=== PATIENT | male | born 1995 | race Caucasian/White ===

== ENCOUNTER 2017-12-17 23:35 | Emergency (ER) | payer OTHER ==
[~2017-12-17] VITALS: Ht 180.3 cm; Wt 66.5 kg
[2017-12-17 23:37] VITALS: BP 134/83
[2017-12-18 01:00] LABS: BASOPHILS # (AUTO) 0.06 x10^3/uL (0-0.1); BASOPHILS % (AUTO) 1 % (0-1); EOSINOPHILS # (AUTO) 0.23 x10^3/uL (0-0.4); EOSINOPHILS % (AUTO) 3 % (1-7); LYMPHOCYTES # (AUTO) 3.14 x10^3/uL (1-3.4); LYMPHOCYTES % (AUTO) 38 % (22-44); MD NO; MEAN CORPUSCULAR HEMOGLOBIN 29.9 pg (27.5-34.5); MEAN CORPUSCULAR HGB CONC 33.7 g/dL (33.2-36.2); MEAN CORPUSCULAR VOLUME 88.5 fL (81-97); MEAN PLATELET VOLUME 9.6 fL (7.4-10.4); MONOCYTES # (AUTO) 0.57 x10^3/uL (0.2-0.8); MONOCYTES % (AUTO) 7 % (2-9); NEUTROPHILS # (AUTO) 4.17 x10^3/uL (1.8-6.8); NEUTROPHILS % (AUTO) 51 % (42-75); PLATELET COUNT 187 x10^3/uL (130-400); RED BLOOD COUNT 5.32 x10^6/uL (4.38-5.82); RED CELL DISTRIBUTION WIDTH 12.9 % (9.4-14.8)
[2017-12-18 01:12] LABS: ALBUMIN 4.2 g/dL (3.4-5.0); ANION GAP 2 mmol/L (5-15); CALCIUM 9.2 mg/dL (8.5-10.1); CHLORIDE 105 mmol/L (98-107)
[2017-12-18 01:21] LABS: ALANINE AMINOTRANSFERASE 20 U/L (12-78); ALKALINE PHOSPHATASE 81 U/L (45-117); BILIRUBIN,TOTAL 0.6 mg/dL (0.2-1.0); CREATININE 1.39 mg/dL (0.7-1.3); TOTAL PROTEIN 7.7 g/dL (6.4-8.2)
[2017-12-18] MEDS ORDERED: HYDROcodone/APAP 5/325 TABLET PO ONE (01:30)
[2017-12-18] MEDS ORDERED: HYDROcodone/APAP 5/325 TABLET ONE (01:36)
[2017-12-18 01:46] LABS: MICROSCOPIC AUTO
[2017-12-18 01:48] LABS: CULTURE INDICATED? NO
== END 2017-12-18 02:55 | disposition home or self-care (01) ==
LOC: ED 12-18 02:52
DX: R10.32 Left lower quadrant pain (principal); N50.812 Left testicular pain
CPT/HCPCS: 36415; 76870; 80053; 81001; 85025; 99285

== ENCOUNTER 2020-02-12 09:32 | Emergency (ER) | payer OTHER ==
[~2020-02-12] VITALS: Ht 177.8 cm; Wt 65.9 kg
--- NOTE | 2020-02-12 10:25 | NUR ---
BACK FROM CT WITH ASSESSMENT FULL OCULAR ROM TO LEFT EYE- HOWEVER WITH PAIN WITH LATERAL MOVEMENTS VA'S r-20/30, L-20/30, Both 20/30 (with glasses) Unable to open mouth d/t left maxilla pain -deferring medication
--- NOTE | 2020-02-12 11:18 | NUR ---
FIRST CONTACT W/ PT DUE TO PT LOAD. PT RESTING ON GURNEY W/ SIDE RAILS UPX2 AND CALL LIGHT IN REACH, CONNECTED TO MONITORING. STEFFANY SOW. AWAITING CONSULT.
[2020-02-12 11:32] VITALS: BP 115/79
== END 2020-02-12 13:25 | disposition home or self-care (01) ==
LOC: ED 09:58
DX: S02.32XA Fracture of orbital floor, left side, initial encounter for closed fracture (principal); S02.842A Fracture of lateral orbital wall, left side, initial encounter for closed fracture; S02.40FA Zygomatic fracture, left side, initial encounter for closed fracture; S02.40DA Maxillary fracture, left side, initial encounter for closed fracture; Y04.8XXA Assault by other bodily force, initial encounter; Y93.89 Activity, other specified; Y92.89 Other specified places as the place of occurrence of the external cause; Y99.8 Other external cause status
CPT/HCPCS: 70450; 70486; 72125; 99285

== ENCOUNTER 2020-02-13 07:15 | Day surgery (SDC) | payer OTHER ==
[~2020-02-13] VITALS: Ht 177.8 cm; Wt 64.0 kg
[2020-02-13 08:04] VITALS: BP 136/76
[2020-02-13] MEDS ORDERED: CHLORHEXIDINE 15 ML UDC ONE (08:18)
[2020-02-13] MEDS ORDERED: CHLORHEXIDINE 15 ML UDC MM STA (08:33)
[2020-02-13] MEDS ORDERED: MUPIROCIN OINT 2%, 22GM ONE (08:53)
[2020-02-13] MEDS ORDERED: LIDOCAINE/PF 1%, 30ML ONE (08:53)
[2020-02-13] MEDS ORDERED: EPINEPHRINE 1 MG/ML, 1ML ONE (08:53)
[2020-02-13] MEDS ORDERED: BALANCED SALT OPHTH IRRIG SOLN 18ML ONE (08:53)
[2020-02-13] MEDS ORDERED: LACTATED RINGERS 1,000 ML IV SCH (09:00)
[2020-02-13] MEDS ORDERED: MIDAZOLAM 1 MG/ML, 2ML ONE (09:01)
[2020-02-13] MEDS ORDERED: FENTANYL PF 100 MCG/2ML ONE ×2 (09:02→09:34)
[2020-02-13] MEDS ORDERED: LIDOCAINE-MPF 2% ,5ML ONE (09:06)
[2020-02-13] MEDS ORDERED: SUCCINYLCHOLINE 20 MG/ML, 10ML ONE (09:06)
[2020-02-13] MEDS ORDERED: PROPOFOL 10 MG/ML, 20ML ONE (09:06)
[2020-02-13] MEDS ORDERED: CEFAZOLIN 1,000 MG ONE ×2 (09:32)
[2020-02-13] MEDS ORDERED: DEXAMETHASONE 4 MG/ML, 1ML ONE ×2 (09:32)
[2020-02-13] MEDS ORDERED: KETOROLAC 30 MG/1 ML ONE (10:19)
[2020-02-13] MEDS ORDERED: ONDANSETRON 2MG/ML, 2ML ONE (10:19)
== END 2020-02-13 11:40 | disposition home or self-care (01) ==
LOC: OUT 07:15
PROVIDERS: ATTEND Otolaryngology Facial Plastic Surgery
DX: S02.40FA Zygomatic fracture, left side, initial encounter for closed fracture (principal); Z20.828 Contact with and (suspected) exposure to other viral communicable diseases; S02.85XA Fracture of orbit, unspecified, initial encounter for closed fracture; F12.90 Cannabis use, unspecified, uncomplicated; Z79.899 Other long term (current) drug therapy; Y08.89XA Assault by other specified means, initial encounter; Y93.89 Activity, other specified; Y92.89 Other specified places as the place of occurrence of the external cause; Y99.8 Other external cause status
CPT/HCPCS: 21365; 87635; C1713; J0171; J0330; J0690; J1100; J1885; J2250; J2405; J2704; J3010; J7120